=== PATIENT | male | born 1985 | race Caucasian/White ===

== ENCOUNTER 2016-04-19 19:52 | Emergency (ER) | payer SELFPAY ==
--- NOTE | 2016-04-20 08:05 | RAD ---
Exam: Two-view chest COMPARISON: None INDICATION: Cough for 3 weeks. FINDINGS: PA and lateral views of the chest were obtained. Cardiac silhouette is within normal limits. Lungs are normally inflated. There is no focal airspace disease or pleural effusion. Bones of the chest wall within normal limits. IMPRESSION: No radiographic evidence of pneumonia.
== END 2016-04-19 21:56 | disposition home or self-care (01) ==
LOC: ED 19:52
DX: J40 Bronchitis, not specified as acute or chronic (principal); J45.909 Unspecified asthma, uncomplicated; F17.210 Nicotine dependence, cigarettes, uncomplicated

== ENCOUNTER 2016-05-18 03:11 | Emergency (ER) | payer SELFPAY ==
[2016-05-18] MEDS ORDERED: ALBUTEROL/IPRATROPIUM 2.5/0.5 MG 3 ML/EACH DOSE ONE (04:09)
[2016-05-18] MEDS ORDERED: PREDNISONE 20 MG TABLET ONE (04:45)
[2016-05-18] MEDS ORDERED: ALBUTEROL NEB 2.5 MG/3 ML VIAL.NEB NEB ONE (04:46)
[2016-05-18] MEDS ORDERED: AZITHROMYCIN 250 MG TABLET ONE (05:05)
== END 2016-05-18 05:13 | disposition home or self-care (01) ==
LOC: ED 03:11
DX: R05 Cough (principal); J45.909 Unspecified asthma, uncomplicated; F17.210 Nicotine dependence, cigarettes, uncomplicated